=== PATIENT | female | born 1990 | race Caucasian/White ===

== ENCOUNTER 2024-03-29 13:54 | Emergency (ER) | payer SELFPAY ==
[2024-03-29] MEDS ORDERED: Acetaminophen 500 MG TAB ONE (17:20)
== END 2024-03-29 20:05 | disposition home or self-care (01) ==
LOC: MADERS 13:54 → EEVIPCON 13:54 → MADERS 20:05
DX: S01.311A Laceration without foreign body of right ear, initial encounter (principal); S06.0X0A Concussion without loss of consciousness, initial encounter; S00.83XA Contusion of other part of head, initial encounter; F17.210 Nicotine dependence, cigarettes, uncomplicated; Y04.8XXA Assault by other bodily force, initial encounter
CPT/HCPCS: 12011; 99282